=== PATIENT | female | born 1960 | race Caucasian/White ===

== ENCOUNTER 2023-11-03 08:04 | Emergency (ER) | payer OTHER, SELFPAY ==
[2023-11-03 08:06] VITALS: BP 197/108
--- NOTE | 2023-11-03 08:24 | ED.GENMED ---
History of Present Illness
General
Chief Complaint: Abdominal Symptoms
Time Seen by Provider: 11/03/23 08:23
Travel History
Have you had any contact with someone who has COVID-19?: No
Do you have any symptoms of coronavirus? Fever > 100 degrees, chills, cough, shortness of breath, sore throat, loss of taste or smell, muscle aches, or headache?: No
History of Present Illness
History of Present Illness:
HPI: Last night around 10 PM, she had some nausea and broke out into a sweat. This woke her from sleep. She went to her living room and rested for a couple of hours and her symptoms subsided. This morning around 4 AM, she developed headache and
chest discomfort. 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 She had been increased to losartan 100 mg but developed some symptoms that may or may not be related to losartan so she
decreased back down to 50 mg. She did take her medication today. She did try a dose of Xanax 0.25 mg (half of 0.5mg) which has not done anything for her.
EXAM:
GENERAL: Well appearing in minimal distress
HEENT: Moist oral mucosa
CARDIOVASCULAR: No murmurs, normal heart rate and rhythm, No chest wall tenderness
PULMONARY: No respiratory distress, breath sounds are clear and equal
ABDOMEN: Soft with no peritoneal signs, no tenderness
NEUROLOGIC: Excellent strength all extremities, no coordination deficits
PSYCHIATRIC: Appropriate mental status, normal insight and judgement
EXTREMITIES: Nontender, no edema, moves all extremities equally
SKIN: No rash, no lesions
ED COURSE:
8:30 AM: I initially evaluated patient
NUMBER AND COMPLEXITY OF PROBLEMS ADDRESSED AT THE ENCOUNTER
� Chronic conditions affecting care: High blood pressure, hyperlipidemia, IBS, history of hypothyroidism, anemia
� Acute Exacerbation and/or Progression of Chronic Illness: This is an acute problem
� Differential Diagnosis includes: Anxiety, ACS, hypertensive urgency, GERD, thyroid disease
AMOUNT AND/OR COMPLEXITY OF DATA TO BE REVIEWED AND ANALYZED
� I performed an independent evaluation of and my interpretation is:
EKG: Sinus 103, normal axis, nonspecific ST abnormality which is currently more prominent in comparison to 07/09/2014
CT:
X-rays: I personally reviewed chest x-ray and see no sign of pneumonia.
Laboratory Studies: White count of 16.5, calcium is high at 11.4, troponin is negative, TSH is normal
Other:
� Review of other/old records: She had a normal stress echo 12/31/2015 Dr. Toledo
� Clinical information was obtained by an independent historian: None needed
� Prescriptions/Medications Considered but not given:
� Further testing considered but not performed:
RISK OF COMPLICATIONS AND/OR MORBIDITY OR MORTALITY OF PATIENT MANAGEMENT
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
� Discussion with other providers:
� Escalation of care including admission/observation vs risk of discharge considered: The patient had diaphoresis last night, now with chest discomfort that started around 4 AM with a nondiagnostic EKG. Her blood pressure has
spontaneously improved from 200 systolic down to 160. Leukocytosis is noted�will add cultures and lactic. She was tachycardic upon arrival however reassessment at 10:30 AM, her pulse is normal at 78. She was given some Tylenol. Lactic acid is
1.8. I reassessed patient at 12:20 PM, she has virtually no symptoms. She did have a recent cortisone injection of the left knee. Left knee shows no sign of infection and she has no pain at the left knee. She is encouraged to return here if
worse. Blood cultures pending.
Past History
Past History
ED Past Medical History: Hypercholesterolemia, Hypothyroidism (Currently on no medication) and Other (Irritable bowel)
ED Past Surgical History: Gynecological
Social History
Tobacco: Non-smoker
Alcohol: None
Drug: None
Personal:
Living: with family
Family History
Family History: Unable to obtain
Phy Exam
Physical Exam
Physical Exam:
See HPI
Course
Orders/Labs/Results
Orders:
Orders
11/03/23 08:07
Electrocardiogram (*1) Urgent
Reason for Study: Chest Pain
EKG- Treatment ONCE
11/03/23 08:39
Acetaminophen [Tylenol] 1,000 mg PO NOW STA
11/03/23 08:48
Complete Blood Count/With Diff Urgent
Troponin I Urgent
11/03/23 08:49
Comprehensive Metabolic Panel Urgent
Direct Bilirubin Urgent
Lipase Urgent
TSH Reflex To Free T4 Urgent
11/03/23 10:28
CR Chest - 2 Views Urgent
Comment:
Reason For Exam: cp leukocytosis
11/03/23 11:08
Lactic Acid Q4H
Comment: CANCEL 2nd LACTIC ACID IF 1st LACTIC ACID IS LESS THAN 2
Blood Culture Q30M
GRACIELA Source: Blood/Venous
Specimen Description:
11/03/23 11:20
Blood Culture Q30M
GRACIELA Source: Blood/Venous
Specimen Description:
11/03/23 14:30
Lactic Acid Q4H
Comment: CANCEL 2nd LACTIC ACID IF 1st LACTIC ACID IS LESS THAN 2
Abnormal Lab Results
11/03/23 11/03/23
08:48 08:49
WBC 16.5 H 10^3/uL
(4.8-10.8)
Abs Immat Gran (auto) 0.1 H 10^3/uL
(0-0.05)
Absolute Neuts (auto) 15.2 H 10^3/uL
(1.4-6.5)
Absolute Lymphs (auto) 1.0 L 10^3/uL
(1.2-3.4)
Immature Gran % 0.7 H %
(0-0.5)
Neutrophils % 92.0 H %
(42.2-75.2)
Lymphocytes % 5.7 L %
(20.5-51.1)
Monocytes % 1.5 L %
(1.7-9.3)
Creatinine 0.5 L mg/dL
(0.6-1.0)
Glucose 192 H mg/dl
(70-99)
Calcium 11.4 H mg/dl
(8.4-10.2)
11/03/23 08:48
11/03/23 08:49
Vital Signs
Initial and Last Documented VS:
Initial Vital Signs
Temp Pulse Resp BP Pulse Ox
98.9 F 117 18 197/108 97
11/03/23 08:06 11/03/23 08:06 11/03/23 08:06 11/03/23 08:06 11/03/23 08:06
Last Documented Vital Signs
Temp Pulse Resp BP Pulse Ox
98.9 F 87 19 109/90 97
11/03/23 08:06 11/03/23 11:30 11/03/23 11:30 11/03/23 11:17 11/03/23 11:30
*Critical Care Note
Total Time (30-74mins, 75-104mins- exclusive of procedures): Not Applicable
ED Attending Note
-
Portions of this chart may have been created with voice recognition software.� Occasional wrong word or��sound alike� substitutions may have occurred due to the inherent limitations of voice recognition software.
Discharge Plan
Departure
Prescriptions:
No Action
escitalopram oxalate 10 MG tablet
10 mg PO DAILY
losartan 100 MG tablet
50 mg PO DAILY
levothyroxine [Synthroid] 88 MCG tablet
88 mcg PO DAILY
levofloxacin 500 MG tablet
500 mg PO DAILY Qty: 5 0RF
dicyclomine 10 MG capsule
10 mg PO QIDPRN PRN (Reason: abdominal pain) Qty: 12 0RF
Referrals:
Irwin Ferraro, [Family Provider] -
Interventions
Interventions:
*ED COVID-19 Vaccine History Last Done: 11/03/23 08:18
XE-Plvnfs-Wqucbaxrri Assessment Last Done: 11/03/23 09:20
[2023-11-03] MEDS: TYLENOL 1000 MG PO (08:56)
[2023-11-03 09:00] VITALS: BP 151/67
[2023-11-03 09:00] LABS: % Basophils 0.1 % (0-2); % Immature Granulocytes 0.7 % (0-0.5); % Lymphocytes 5.7 % (20.5-51.1); % Monocytes 1.5 % (1.7-9.3); Absolute Immature Granulocytes 0.1 10^3/uL (0-0.05); Absolute Monocytes 0.3 10^3/uL (0.1-0.6); Absolute Neutrophils 15.2 10^3/uL (1.4-6.5); Hematocrit 42.4 % (37.0-47.0); Hemoglobin 15.1 g/dL (12.0-16.0); Mean Corp Hgb Conc. 35.6 g/dL (33.0-37.0); Mean Corpuscular Hgb 29.3 pg (27.0-31.0); Mean Corpuscular Volume 82.3 fL (81.0-99.0); Mean Platelet Volume 9.3 fL (7.4-10.4); Nucleated Red Blood Cells % 0 %; Platelet Count 340 10^3/uL (130-400); Red Blood Cell Count 5.15 10^6/uL (4.20-5.40); Red Cell Dist. Width 12.4 % (11.5-14.5); White Blood Cell Count 16.5 10^3/uL (4.8-10.8)
[2023-11-03 09:41] LABS: Troponin I < 0.012 ng/ml
[2023-11-03 09:47] LABS: ALT (SGPT) 25 U/L (0-35); AST (SGOT) 23 U/L (14-36); Albumin 4.4 g/dl (3.5-5.0); Alkaline Phosphatase 80 U/L (38-126); Blood Urea Nitrogen 15 mg/dl (7-17); Calcium 11.4 mg/dl (8.4-10.2); Carbon Dioxide 23 mmol/L (22-30); Chloride 104 mmol/L (98-107); Direct Bilirubin 0.4 mg/dl (0.0-0.4); Glucose 192 mg/dl (70-99); Potassium 3.9 mmol/L (3.5-5.1); Sodium 138 mmol/L (135-145); Total Bilirubin 0.7 mg/dl (0.2-1.3); Total Protein 8.1 g/dl (6.3-8.2); eGFR > 60.00
[2023-11-03 09:53] LABS: TSH Reflex To Free T4 1.04 uIU/ml (0.47-4.68)
[2023-11-03 10:00] VITALS: BP 134/66
[2023-11-03 10:31] LABS: Lipase 78 U/L (23-300)
[2023-11-03 11:17] VITALS: BP 109/90
[2023-11-03 11:36] LABS: Lactic Acid 1.8 mmol/L (0.7-2.0)
[2023-11-03 12:42] VITALS: BP 143/70
== END 2023-11-03 13:19 | disposition home or self-care (01) ==
LOC: EMR 08:04
PROVIDERS: EMERGENCY PHYSICIAN Emergency Medicine; FAMILY PHYSICIAN Family Medicine
DX: R07.9 Chest pain, unspecified (principal); R61 Generalized hyperhidrosis; R00.0 Tachycardia, unspecified; R03.0 Elevated blood-pressure reading, without diagnosis of hypertension; E03.9 Hypothyroidism, unspecified; K58.9 Irritable bowel syndrome, unspecified; D64.9 Anemia, unspecified
CPT/HCPCS: 99285; 71046; 80053; 82248; 83605; 83690; 84443; 84484; 85025; 87040; 93005

== ENCOUNTER → 2023-12-08 07:08 | Outpatient (REF) | payer OTHER, SELFPAY | LOC: DHCBC/DCA 07:08 | PROVIDERS: ATTENDING PHYSICIAN Internal Medicine Cardiovascular Disease; FAMILY PHYSICIAN Family Medicine | DX: I10 Essential (primary) hypertension (principal); R00.2 Palpitations; R07.89 Other chest pain | CPT/HCPCS: 78452; 93017; A9500; J2785 ==

== ENCOUNTER → 2024-01-11 13:36 | Outpatient (REF) | payer OTHER, SELFPAY | LOC: RCS 13:36 | PROVIDERS: ATTENDING PHYSICIAN Internal Medicine Cardiovascular Disease; FAMILY PHYSICIAN Family Medicine | DX: I10 Essential (primary) hypertension (principal); R00.2 Palpitations; R07.89 Other chest pain | CPT/HCPCS: 93306 ==

== ENCOUNTER → 2024-01-28 06:31 | Day surgery (SDC) | payer OTHER, SELFPAY | LOC: GI 06:31 | PROVIDERS: ATTENDING PHYSICIAN Specialist | DX: Z12.11 Encounter for screening for malignant neoplasm of colon (principal); D12.3 Benign neoplasm of transverse colon; D12.5 Benign neoplasm of sigmoid colon; R19.4 Change in bowel habit; K29.50 Unspecified chronic gastritis without bleeding; R12 Heartburn; R07.89 Other chest pain; Z86.010 Personal history of colon polyps; Z80.0 Family history of malignant neoplasm of digestive organs | CPT/HCPCS: 45385; 45380; 43239; 88305; 88342 ==

== ENCOUNTER → 2024-06-29 16:09 | Outpatient (REF) | payer OTHER, SELFPAY | LOC: RAD 16:09 | PROVIDERS: ATTENDING PHYSICIAN Family Medicine | DX: R82.90 Unspecified abnormal findings in urine (principal) | CPT/HCPCS: 76770 ==

== ENCOUNTER → 2024-07-01 13:56 | Outpatient (REF) | payer OTHER, SELFPAY | LOC: WDC 13:56 | PROVIDERS: ATTENDING PHYSICIAN Obstetrics & Gynecology Gynecology; FAMILY PHYSICIAN Family Medicine | DX: Z12.31 Encounter for screening mammogram for malignant neoplasm of breast (principal) | CPT/HCPCS: 77063; 77067 ==

== ENCOUNTER 2024-12-07 07:35 | Inpatient (IN) | payer OTHER, SELFPAY ==
[2024-11-15 13:52] LABS: Hemoglobin 14.5 g/dL (12.0-16.0); Mean Corpuscular Hgb 28.5 pg (27.0-31.0); Mean Corpuscular Volume 86.6 fL (81.0-99.0); Mean Platelet Volume 9.8 fL (7.4-10.4); Platelet Count 312 10^3/uL (130-400); Red Blood Cell Count 5.08 10^6/uL (4.20-5.40); Red Cell Dist. Width 12.8 % (11.5-14.5); White Blood Cell Count 8.4 10^3/uL (4.8-10.8)
[2024-11-15 14:06] VITALS: BMI 40.7
[2024-11-15 15:02] LABS: ALT (SGPT) 39 U/L (0-35); AST (SGOT) 30 U/L (14-36); Albumin 4.6 g/dl (3.5-5.0); Alkaline Phosphatase 83 U/L (38-126); Blood Urea Nitrogen 9 mg/dl (7-17); Calcium 10.4 mg/dl (8.4-10.2); Carbon Dioxide 27 mmol/L (22-30); Chloride 101 mmol/L (98-107); Estimated Creatinine Clearance 107 ml/min; Glucose 104 mg/dl (70-99); Potassium 4.2 mmol/L (3.5-5.1); Sodium 138 mmol/L (135-145); Total Bilirubin 0.9 mg/dl (0.2-1.3); Total Protein 7.4 g/dl (6.3-8.2); eGFR > 60.00
[2024-11-27 10:44] VITALS: BMI 40.7
[2024-12-07] VITALS (18 sets, daily range): BP systolic 88–171; BP diastolic 43–93; PULSE 108; O2SAT 91; BMI 40.7
--- NOTE | 2024-12-07 07:48 | W.DS.TRANS ---
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
-
Discharge Instructions:
Sleep Apnea Risk Intermediate
Discharge Diagnosis/Procedures L TKA 12/07/24
Diet Diabetic, Carb Controlled
Activity With Walker
Driving Restrictions No driving
Bathing Restrictions OK to Shower
Other Services PT
Instructions:
Stand-Alone Forms: Total Hip/Knee Replacement D/C
Changes to Home Medications: Yes
Discharge Medications:
DC Medications w/original date entered in [employer] [employer]
losartan 100 mg tablet 50 mg PO DAILY 11/20/15
levothyroxine 88 mcg tablet (Synthroid) 100 mcg PO DAILY 10/26/18
alprazolam 0.5 mg tablet (Xanax) 0.25 - 0.5 mg PO DAILYPRN PRN anxiety 11/13/24
amlodipine 5 mg tablet 5 mg PO HS 11/13/24
rosuvastatin 10 mg tablet 10 mg PO DAILY 11/13/24
mupirocin 2 % topical ointment 1 applic intranasal BID #1 tube 11/15/24
Saccharomyces boulardii 250 mg capsule (Florastor) 250 mg PO BID #1 cap 12/07/24
acetaminophen 325 mg tablet (Tylenol) 650 mg (2 x 325 mg) PO QID #1 tab 12/07/24
aspirin 325 mg tablet 325 mg PO DAILY blood clot prevention #1 tab 12/07/24
cefadroxil 500 mg capsule 500 mg PO BID infection prevention #14 caps 12/07/24
dexamethasone 4 mg tablet 4 mg PO BID inflammation #6 tabs 12/07/24
docusate sodium 100 mg capsule (Colace) 100 mg PO BID stool softner #1 cap 12/07/24
gabapentin 300 mg capsule 300 mg PO HS sleep/pain #10 caps 12/07/24
meloxicam 15 mg tablet 15 mg PO DAILY anti-inflammatory #14 tabs 12/07/24
ondansetron 4 mg disintegrating tablet 4 mg PO Q6H PRN n/v #20 tabs 12/07/24
oxycodone 5 mg tablet 5 mg PO Q6H PRN 1 tab moderate pain, 2 tabs severe pain #30 tabs 12/07/24
pantoprazole 40 mg tablet,delayed release (Protonix) 40 mg PO HS GI prophylaxis #30 tabs 12/07/24
sennosides 8.6 mg tablet (Senokot) 17.2 mg (2 x 8.6 mg) PO BID PRN laxative-Constipation #2 tabs 12/07/24
Home Medication Changes
mupirocin 2 % topical ointment 1 applic intranasal BID #1 tube 11/15/24
Saccharomyces boulardii 250 mg capsule (Florastor) 250 mg PO BID #1 cap 12/07/24
acetaminophen 325 mg tablet (Tylenol) 650 mg (2 x 325 mg) PO QID #1 tab 12/07/24
aspirin 325 mg tablet 325 mg PO DAILY blood clot prevention #1 tab 12/07/24
cefadroxil 500 mg capsule 500 mg PO BID infection prevention #14 caps 12/07/24
dexamethasone 4 mg tablet 4 mg PO BID inflammation #6 tabs 12/07/24
docusate sodium 100 mg capsule (Colace) 100 mg PO BID stool softner #1 cap 12/07/24
gabapentin 300 mg capsule 300 mg PO HS sleep/pain #10 caps 12/07/24
meloxicam 15 mg tablet 15 mg PO DAILY anti-inflammatory #14 tabs 12/07/24
ondansetron 4 mg disintegrating tablet 4 mg PO Q6H PRN n/v #20 tabs 12/07/24
oxycodone 5 mg tablet 5 mg PO Q6H PRN 1 tab moderate pain, 2 tabs severe pain #30 tabs 12/07/24
pantoprazole 40 mg tablet,delayed release (Protonix) 40 mg PO HS GI prophylaxis #30 tabs 12/07/24
sennosides 8.6 mg tablet (Senokot) 17.2 mg (2 x 8.6 mg) PO BID PRN laxative-Constipation #2 tabs 12/07/24
Pending Results: No
[2024-12-07] MEDS: TYLENOL 650 MG PO ×5 (07:58→23:30)
[2024-12-07] MEDS: BACTROBAN NASAL 1 GRAM NASAL (07:58)
[2024-12-07] MEDS: CELEBREX 200 MG PO (08:03)
[2024-12-07] MEDS: NORMOSOL-R/PLASMALYTE-A 1000 IV ×2 (08:07→14:36)
[2024-12-07] MEDS: ROXICODONE 5 MG PO (12:51)
[2024-12-07] MEDS: DILAUDID 0.5 MG IV ×2 (13:45→15:15)
--- NOTE | 2024-12-07 14:50 | PTCARENOTE ---
Pt received from the PACU via bed. Transport was w/o incident. Pt is AAOx3, HR sl tachy at 108 apically/reg, abd soft, denies nausea, reports pain at 5/10 left leg. Will med. as ordered for pain. Left knee w/mepilex dressing C/D/I, no drainage noted
at this time. VSS, Pt is afebrile. Pt instructed on plan of care. Pt verbalized understanding of instructions, call daniels is within reach.
[2024-12-07] MEDS: ANCEF 5 IV ×2 (15:16→23:30)
--- NOTE | 2024-12-07 16:15 | OR.RPT ---
Operative Report
Operative Report
Orthopaedic Surgery Operative Note
DATE OF OPERATION: 12/07/2024
PREOPERATIVE DIAGNOSES: Osteoarthritis, left knee.
POSTOPERATIVE DIAGNOSES: Osteoarthritis, left knee.
OPERATION PERFORMED:
1) Left total knee arthroplasty (CPT 73370 - 22 modifier for complexity)
2) Intraosseous administration of analgesic (CPT 61952)
SURGEON: George Bai MD
ASSISTANTS: John Hsieh PA-C who helped with patient and limb positioning and retraction
ANESTHESIA: Spinal by anesthesia plus intraoperative infusion of morphine into the tibial metaphysis by Dr. Bai
COMPLICATIONS: None.
ESTIMATED BLOOD LOSS: 20mL
DRAINS: None
TOURNIQUET TIME: 50 minutes.
IMPLANTS:
- Master Persona CR Femur, size 8
- Master Persona tibia base plate, size D
- Master Persona medial constrained articular surface, 10 mm
- All-polyethylene patellar component, size 29
- DJO [place] bone cement
INDICATIONS: The patient presented to my office with debilitating left knee pain due to osteoarthritis. We reviewed the natural history of this problem, as well as the risks, benefits, and alternatives of various treatment options. The patient
exhausted all nonoperative treatment options and wished to proceed with knee replacement surgery. The patient understood the risks which included, but were not limited to, bleeding, infection, failure to relieve pain, more pain than preop, damage to
blood vessels and nerves, need for reoperation, mechanical failure of the implants, wound healing problems, stiffness, instability, blood clot, pulmonary embolism, myocardial infarction, pneumonia, arrhythmia, CVA, and . The patient accepted
these risks and wished to proceed. All questions were answered, and informed consent was obtained.
PROCEDURE IN DETAIL: The patient was identified in the preoperative holding area. The left knee was identified as the operative site. The patient was taken in the operating room and placed in a supine position on the operating table. Spinal
anesthesia was performed. IV antibiotics and tranexamic acid were administered. An SCD was placed on the right lower extremity. A well-padded tourniquet was placed on the proximal thigh. All bony prominences were well padded. The left lower
extremity was prepped and draped in the usual sterile fashion.
We performed a surgical time-out. An interarticular block was performed with local anesthetic with epinephrine. The limb was exsanguinated with an Esmarch bandage, then the tourniquet was inflated to 250 mmHg. I performed interosseous administration
of morphine-saline solution via a Jamshidi style intraosseous needle into the proximal medial tibial metaphysis as described by Noah Austin MD. This was performed to aid in pain control. A midline skin incision was made followed by a medial
parapatellar arthrotomy. A subperiosteal peel was performed on the medial tibia. I excised part of the infrapatellar fat pad to improve our visualization as well as tissue over anterior femur. The patella was everted and the knee was flexed. I
excised the remnants of the anterior and posterior cruciate ligaments as well as tibial and femoral osteophytes with rongeurs.
The knee was flexed, and the extramedullary tibial cutting guide was aligned. [place] was aligned at neutral, rotation was centered on the tibial tubercle, and coronal alignment was aligned with the mechanical axis of the tibia and center of the ankle
joint. The cut height was 10mm off the lateral tibia joint surface. The guide was secured into place. The MCL and LCL were protected. The tibia surface was cut. The cut surface was inspected after removal to ensure appropriate height and slope based
on the preoperative plan. The cut was checked with a drop clayton. It was centered nicely at the ankle.
A drill was used to open the femoral canal. The intramedullary distal femoral cutting guide was inserted into the femur. This was set at 5 degrees +0. This was secured into place with three pins. The cut level was checked with an danay wing. The
distal femur was cut through the cutting guide. The IM guide was reinserted to double check that the level of resection was flush and in appropriate alignment.
[place]'s line and the transepicondylar axis were marked on the femur. The femoral sizing guide was applied to the anterior femur. Pins were inserted, and the 4-in-1 cutting guide was applied and secured into place. The rotation was compared to
[place]'s line, the transepicondylar axis, and the neutral tibia cut and was found to be appropriate. The width was checked and found to be appropriate and lateralized on the femur. The anterior, posterior, and chamfur cuts were made. A lamina
systems trainer was used to open the flexion gap, and posterior osteophytes were removed with a curved osteotome. The remnant medial and lateral meniscus were also removed. I prophylactically cauterized the lateral geniculate arteries. A 10mm spacer block
was applied to the flexion gap and was noted to be balanced medially and laterally. The knee was extended, and the block showed symmetric to extension and flexion gaps.
The tibia was exposed and sized. Rotation was set in line with the tibial tubercle and congruent with the femur. The trial was secured into place with two pins. The trial femur was impacted into place, and a trial articular surface was placed. The
knee was taken through range of motion and noted to be stable throughout the arc of motion without gaping or excess tension. In extension, a measured resection of the patella was performed. The patella was sized, and lug holes were drilled. A trial
patella component was applied, and it was noted to track centrally throughout the arc of motion without need for further releases.
The trials were removed. The tibia keel was prepared with the punch and the drill. The bone surfaces were irrigated with sterile saline and dried. The cement was mixed in a vacuum mixer. Cement gun was used to apply cement to the tibial surface and
the undersurface of the tibial implant. Cement was pressurized into the tibial canal and tibia surface. The tibial component was impacted into place. Excess cement was removed. Cement was applied to the femoral surface and the femoral component. The
femoral component was impacted into place, and excess cement removed. A trial articular surface was inserted, and the knee was extended while the cement polymerized. The tourniquet was let down, and meticulous hemostasis was achieved. Dilute
betadine was poured into the wound and allowed to soak for 3 minutes. The knee was irrigated with copious normal saline.
Once the cement was polymerized, the trial articular surface was removed. Any excess cement was removed. The knee was trialed, and the final articular surface was selected and inserted into the tibial locking mechanism. The knee was reduced. A fresh
drape was applied to the surgical field.
The arthrotomy was closed with 0-PDS. Once closed, an interarticular block was performed with local anesthetic with epi. The deep dermal layer was closed with 2-0 PDS, and the subcuticular skin was closed with 3-0 monocryl. A Dermabond Prineo
dressing was applied to the skin in full flexion. Once this was completely dry, a sterile waterproof dressing was applied.
The anesthesia team performed an adductor canal block in the OR. The patient awoke from anesthesia without any difficulties. The sponge and instrument counts were correct x2 at the end of the case.
Of note, 22 modifier was added for complexity due to BMI >40kg/m2 which added 20 additional minutes for positioning, exposure, and implanting the components.
Timothy Bai MD
[2024-12-07] MEDS: ZOFRAN 4 MG IV (16:23)
[2024-12-07] MEDS: ASPIRIN 325 MG PO (18:19)
[2024-12-07] MEDS: COLACE 100 MG PO (20:57)
[2024-12-07] MEDS: BACTROBAN 2% OINTMENT 1 APPLIC NASAL (20:57)
[2024-12-07] MEDS: XANAX 0.25 MG PO (23:30)
[2024-12-07] MEDS: ULTRAM 50 MG PO (23:30)
[2024-12-07] MEDS: NEURONTIN 300 MG PO (23:30)
[2024-12-07] MEDS: TORADOL 15 MG IV (23:30)
[2024-12-07] MEDS: DECADRON 4 MG IV (23:42)
[2024-12-07] MEDS: NORVASC 5 MG PO (23:52)
[2024-12-08 03:05] VITALS: BP 146/84
[2024-12-08] MEDS: TYLENOL 650 MG PO ×2 (03:15→09:02)
[2024-12-08] MEDS: XANAX 0.25 MG PO (06:04)
[2024-12-08] MEDS: ULTRAM 50 MG PO (06:04)
[2024-12-08] MEDS: DECADRON 4 MG IV (06:05)
[2024-12-08] MEDS: SYNTHROID 100 MCG PO (06:05)
[2024-12-08] MEDS: TORADOL 15 MG IV (06:05)
[2024-12-08 07:00] VITALS: BP 117/66
[2024-12-08] MEDS: PROTONIX 40 MG PO (09:02)
[2024-12-08] MEDS: ASPIRIN 325 MG PO (09:02)
[2024-12-08] MEDS: CRESTOR 10 MG PO (09:02)
[2024-12-08] MEDS: COLACE 100 MG PO (09:02)
[2024-12-08] MEDS: BACTROBAN 2% OINTMENT 1 APPLIC NASAL (09:02)
--- NOTE | 2024-12-08 09:25 | CM ---
Initial assessment completed
Pt lives with her in a ranch style home; 3 [address]
Independent , employed, drives
DME - commode, shower chair, rolling walker, quad cane
SNF/HH - no past hx
Has ride home
PCP - Irwin Ferraro
Pharm - [facility]
Plan is for outpatient PT. [facility] Has Rx. Has transport
Plan - home with outpatient PT
[2024-12-08 09:47] VITALS: BP 135/73; BP 146/71; PULSE 85; PULSE 94; O2SAT 93
--- NOTE | 2024-12-08 09:52 | W.PN.ORTHO ---
Today's Communication / Plan
-
d/c
Assessment
.
Distal Motor Intact: Yes
Dressing:
Clean, dry and intact.
Plan
.
Surgery / Date: L TKA 12/07/24
DVT Prophylaxis: Aspirin
Activity:
Out of bed.
PT/OT
Discharge Plan: Home w/ Outpatient PT
Subjective
.
.:
Patient resting comfortably.
Vital Signs and Labs
.
Vital Signs and Labs:
Lab Results
11/15/24 12:41
11/15/24 12:41
Temp Pulse Resp BP Pulse Ox
98.1 F 86 16 117/66 97
12/08/24 07:00 12/08/24 07:00 12/08/24 07:00 12/08/24 07:00 12/08/24 07:00
Non-invasive Hgb result: 13.4
Physical Exam
-
HEENT: No pallor, cyanosis, or jaundice. Throat clear.
NECK: Supple. No JVD.
RESPIRATORY: Lungs clear to auscultation.
CVS: S1, S2 normal. RRR.� No murmur, rub or gallop.
ABDOMEN: Soft, non-tender. No distension. BS+/normal.
EXTREMITIES: strength equal, no calf pain with palpation
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 No focal deficits. 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
[2024-12-08 09:59] VITALS: BP 150/67; BP 165/78; BP 173/85; PULSE 80; PULSE 84; O2SAT 94
[2024-12-08] MEDS: COZAAR PO (10:14)
[2024-12-08] MEDS: COZAAR 50 MG PO (10:23)
== END 2024-12-08 10:56 | disposition home or self-care (01) | DRG 470 ==
LOC: 2 SOUTH 07:35
PROVIDERS: ADMITTING PHYSICIAN Orthopaedic Surgery; FAMILY PHYSICIAN Family Medicine; REFERRING PHYSICIAN Internal Medicine Cardiovascular Disease
PROC: 0SRD0J9 Replacement of Left Knee Joint with Synthetic Substitute, Cemented, Open Approach (ICD-10-PCS; 2024-12-07)
DX: M17.12 Unilateral primary osteoarthritis, left knee (principal); Z68.41 Body mass index [BMI] 40.0-44.9, adult; I10 Essential (primary) hypertension; E78.5 Hyperlipidemia, unspecified; K21.9 Gastro-esophageal reflux disease without esophagitis; K76.0 Fatty (change of) liver, not elsewhere classified; K58.0 Irritable bowel syndrome with diarrhea; M51.369 Other intervertebral disc degeneration, lumbar region without mention of lumbar back pain or lower extremity pain; E03.9 Hypothyroidism, unspecified; F41.9 Anxiety disorder, unspecified; L40.9 Psoriasis, unspecified; R73.03 Prediabetes; E66.01 Morbid (severe) obesity due to excess calories; Z86.0100 Personal history of colon polyps, unspecified; Z87.442 Personal history of urinary calculi; Z85.828 Personal history of other malignant neoplasm of skin; Z79.890 Hormone replacement therapy; Z79.1 Long term (current) use of non-steroidal anti-inflammatories (NSAID); Z90.49 Acquired absence of other specified parts of digestive tract; Z88.6 Allergy status to analgesic agent; Z90.710 Acquired absence of both cervix and uterus
CPT/HCPCS: 36415; 73560; 80053; 83036; 85027; 87070; 97110; 97116; 97162; 97166; 97530; 97535

== ENCOUNTER 2025-01-01 08:36 | Outpatient (RCR) | payer OTHER, SELFPAY | END 2025-01-01 23:59 | disposition home or self-care (01) | LOC: RPT 08:36 | PROVIDERS: ATTENDING PHYSICIAN Orthopaedic Surgery; FAMILY PHYSICIAN Family Medicine | DX: Z47.1 Aftercare following joint replacement surgery (principal); Z96.652 Presence of left artificial knee joint; Z73.6 Limitation of activities due to disability | CPT/HCPCS: 97010; 97110; 97112; 97116; 97162; 97530 ==

== ENCOUNTER 2025-01-25 14:44 | Outpatient (RCR) | payer OTHER, SELFPAY | END 2025-01-25 23:59 | disposition home or self-care (01) | LOC: RPT 14:44 | PROVIDERS: ATTENDING PHYSICIAN Orthopaedic Surgery; FAMILY PHYSICIAN Family Medicine | DX: Z47.1 Aftercare following joint replacement surgery (principal); Z96.652 Presence of left artificial knee joint; R26.2 Difficulty in walking, not elsewhere classified; Z73.6 Limitation of activities due to disability; M62.81 Muscle weakness (generalized) | CPT/HCPCS: 97010; 97110; 97112; 97530 ==

== ENCOUNTER 2025-02-13 14:59 | Outpatient (RCR) | payer OTHER, SELFPAY | END 2025-02-27 08:33 | disposition home or self-care (01) | LOC: RPT 14:59 | PROVIDERS: ATTENDING PHYSICIAN Orthopaedic Surgery; FAMILY PHYSICIAN Family Medicine | DX: Z47.1 Aftercare following joint replacement surgery (principal); Z73.6 Limitation of activities due to disability; R26.2 Difficulty in walking, not elsewhere classified; Z96.652 Presence of left artificial knee joint; M62.81 Muscle weakness (generalized) | CPT/HCPCS: 97110; 97530 ==

== ENCOUNTER → 2025-05-04 08:18 | Outpatient (REF) | payer OTHER, SELFPAY | LOC: RAD 08:18 | PROVIDERS: ATTENDING PHYSICIAN Internal Medicine Rheumatology; FAMILY PHYSICIAN Family Medicine | DX: M25.549 Pain in joints of unspecified hand (principal); M25.579 Pain in unspecified ankle and joints of unspecified foot; M54.50 Low back pain, unspecified | CPT/HCPCS: 72100; 72202; 73110; 73130; 73610; 73630 ==